=== PATIENT | female | born 1970 | race Asian ===

== ENCOUNTER 2019-10-02 03:05 | Emergency (ER) | payer OTHER ==
[~2019-10-02] VITALS: Ht 152.4 cm; Wt 90.0 kg
[2019-10-02] MEDS ORDERED: KETOROLAC 60 MG/2 ML VIAL. IM ONE (04:30)
--- NOTE | 2019-10-02 04:49 | PHYS DOC ---
Past Medical History Past Medical History: No Pertinent History (INDU HECK DO) Past Surgical History: , Tonsillectomy Additional Past Surgical Histo: breast implants, bracioplasty, lower body lift, lasic, (INDU HECK DO) Smoking Status: Never Smoker Alcohol Use: Occasionally Drug Use: None (INDU HECK DO) General Adult EDM: Chief Complaint: UPPER EXTREMITY INJURY HPI: HPI: Patient is a 49 year old female presents for evaluation of swelling to left hand. Patient states on Saturday she smashed her left forearm on her kitchen door. Patient states shortly after she had significant swelling small aspect u lnar side of her left forearm. Patient states she has swelling and bruising. Patient states yesterday swelling in forearm had improved and now she is having pain and swelling along her left hand. Patient denies any injuries to left hand. On exam pitting edema left hand. Patient states she was told that she may have a blood clot. Patient denies any chest pain or shortness of breath. Patient denies any history of DVT or PE. Patient is not on any BCP. On exam significant swelling left hand. Patient with full range of motion of left hand. Advised patient swelling is more than likely from the swelling that was previously in her forearm (INDU HECK DO) HPI: 49-year-old female presents emergency department today with left-sided hand pain and swelling after injuring it a few days ago. She had an ultrasound ordered which is pending at the time of signout at 6 AM. I evaluated the patient she has some swelling and tenderness. I ordered some x-rays which were unremarkable . Ultrasound is negative for DVT. There is evidence of a venipuncture on ultrasound. We will have the patient follow-up with her PCP in 1 to 2 days. She has some redness to the area. She states that she has not had a recent venipuncture, we will give her Bactrim and Keflex to cover for any developing infection. We will have her follow-up with her doctor in 1 to 2 days. The p richard has been examined and was not found to have an emergency medical condition. The patient was then discharged home in stable condition to follow up with their primary care physician over the next 1-2 days. They were to return if their symptoms worsened or if they were concerned for any reason. They were also instructed to return to the emergency department if they were unable to get the recommended and appropriate follow-up. [id number] discharge instructions and return precautions were given. Patient's questions were answered to their satisfaction. Patient is comfortable with plan. (ANTONIA CORBIN MD) Review of Systems: Review of Systems: Constitutional: Denies fever or chills. [] Eyes: Denies change in visual acuity. [] HENT: Denies nasal congestion or sore throat. [] Respiratory: Denies cough or shortness of breath. [] Cardiovascular: Denies chest pain or edema. [] GI: Denies abdominal pain, nausea, vomiting, bloody stools or diarrhea. [] : Denies dysuria. [] Musculoskeletal: Denies back pain or joint pain. [swelling left forearm and hand] Integument: Denies rash. [] Neurologic: Denies headache, focal weakness or sensory changes. [] Endocrine: Denies polyuria or polydipsia. [] Lymphatic: Denies swollen glands. [] Psychiatric: Denies depression or anxiety. [] (INDU HECK DO) Heart Score: Risk Factors: Risk Factors: DM, Current or recent (<one month) smoker, HTN, HLP, family history of CAD, obesity. Risk Scores: Score 0 - 3: 2.5% MACE over next 6 weeks - Discharge Home Score 4 - 6: 20.3% MACE over next 6 weeks - Admit for Clinical Observation Score 7 - 10: 72.7% MACE over next 6 weeks - Early Invasive Strategies (INDU HECK DO) Current Medications: Current Medications Medications (Trade) Dose Ordered Sig/[facility] Start Time Stop Time Status Last Admin Dose Admin Ketorolac Tromethamine (Toradol Im) 60 mg 1X ONCE 10/02/19 04:30 10/02/19 04:31 DC (INDU HECK DO) Allergies: Allergies: Allergies Coded Allergies Type Severity Reaction Last Updated Verified No Known Allergies Allergy Unknown 06/23/13 Yes (INDU HECK DO) Physical Exam: PE: Constitutional: Well developed, well nourished, no acute distress, non-toxic appearance. [] HENT: Normocephalic, atraumatic, bilateral external ears normal, oropharynx moist, no oral exudates, nose normal. [] Eyes: PERRLA, EOMI, conjunctiva normal, no discharge. [] Neck: Normal range of motion, no tenderness, supple, no stridor. [] Cardiovascular:Heart rate regular rhythm, no murmur [] Lungs & Thorax: Bilateral breath sounds clear to auscultation [] Abdomen: Bowel sounds normal, soft, no tenderness, no masses, no pulsatile masses. [] Skin: Warm, dry, no erythema, no rash. [] Back: No tenderness, no CVA tenderness. [] Extremities: , no cyanosis, no clubbing, ROM intact, no edema. [swelling left hand, full range of motion of hand with pain, full range of motion at elbow] Neurologic: Alert and oriented X 3, normal motor function, normal sensory function, no focal deficits noted. [] Psychologic: Affect normal, judgement normal, mood normal. [] (INDU HECK DO) Current Patient Data: Vital Signs: Vital Signs Date Time Temp Pulse Resp B/P (MAP) Pulse Ox O2 Delivery O2 Flow Rate FiO2 10/02/19 03:15 98.8 74 16 123/75 (91) 98 Room Air 98.8 (INDU HECK DO) EKG: EKG: [] (INDU HECK DO) Radiology/Procedures: Radiology/Procedures: [] (INDU HECK DO) Course & Med Decision Making: Course & Med Decision Making Pertinent Labs and Imaging studies reviewed. (See chart for details) [] (INDU HECK DO) Dragon Disclaimer: Dragon Disclaimer: This electronic medical record was generated, in whole or in part, using a voice recognition dictation system. (INDU HECK DO) Departure Departure Impression: Primary Impression: Cellulitis Additional Impression: Swelling of left hand Disposition: HOME, SELF-CARE Condition: STABLE Referrals: NO PCP (PCP) Patient Instructions: Hand Contusion, [id number] Scripts Sulfamethoxazole/Trimethoprim (BACTRIM DS TABLET) 1 Each Tablet 1 TAB PO BID, #14 TAB 0 Refills Prov: ANTONIA CORBIN MD 10/02/19 Cephalexin (KEFLEX) 250 Mg Capsule 1 CAP PO QID, #20 CAP 0 Refills Prov: ANTONIA CORBIN MD 10/02/19 Justicifation of Admission Dx: Justifications for Admission: Justification of Admission Dx: No (ANTONIA CORBIN MD) INDU HECK DO Oct 02, 2019 04:49 ANTONIA CORBIN MD Oct 02, 2019 08:56
--- NOTE | 2019-10-02 07:26 | RAD ---
Left upper extremity venous duplex Doppler ultrasound HISTORY: Left arm swelling and pain. FINDINGS: No DVT evident with patent color Doppler blood flow left internal jugular vein and subclavian vein with cardiac pulsatility. No DVT evident with compressibility and patent color Doppler blood flow and augmentation of blood flow of the left axillary vein, brachial veins. No thrombosis with patent color Doppler blood flow and compressibility left cephalic vein and basilic vein. No DVT evident with compressibility and patent color Doppler blood flow the left radial and ulnar veins. At the left antecubital fossa there is a subcentimeter cystic appearing focus without internal blood flow. IMPRESSION: 1. Negative left upper extremity for DVT. 2. At the left antecubital fossa there is a subcentimeter round anechoic cystic focus without internal blood flow. This is indeterminate. This could represent a small hematoma from recent venipuncture. There is no surrounding edema or hypervascularity to suggest abscess. Follow-up may be of benefit to document this resolves. Electronically signed by: Aroldo Adams MD (10/02/2019 7:23 AM) [id number]
--- NOTE | 2019-10-02 07:27 | RAD ---
Left elbow x-rays 3 views HISTORY: Left elbow and wrist pain. FINDINGS: No elevation of the fat pads to suggest a joint effusion. No fracture. No dislocation. There is soft tissue edema and swelling along the medial and posterior elbow and proximal forearm. IMPRESSION: No acute osseous injury. Soft tissue edema and swelling as described above. Electronically signed by: Aroldo Adams MD (10/02/2019 7:24 AM) [id number]
--- NOTE | 2019-10-02 08:08 | RAD ---
EXAM: Left hand, 3 views; left wrist, 3 views. HISTORY: Pain. COMPARISON: None. FINDINGS: 3 views of the left hand and wrist are obtained. There is no fracture, dislocation or subluxation. There is no radiodense foreign body. IMPRESSION: No acute osseous finding. Electronically signed by: Sharona Crowley MD (10/02/2019 8:06 AM) [id number]
[2019-10-02] MEDS ORDERED: CEPH-263 PO (08:55)
[2019-10-02] MEDS ORDERED: SULF1TAB24 PO (09:06)
[2019-10-02 09:16] VITALS: BP 111/58
== END 2019-10-02 09:20 | disposition home or self-care (01) ==
LOC: ER 03:05
DX: L03.114 Cellulitis of left upper limb (principal); R22.32 Localized swelling, mass and lump, left upper limb
CPT/HCPCS: 73080; 73110; 73130; 93971; 96372; 99284; J1885